=== PATIENT | female | born 2000 | race Caucasian/White ===

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

== ENCOUNTER 2023-02-23 19:51 | Emergency (ER) | payer OTHER, BC ==
[2023-02-23 20:36] VITALS: BP 130/77; PULSE 73
== END 2023-02-23 20:45 | disposition home or self-care (01) ==
LOC: KA.ED 19:51
DX: R51.9 Headache, unspecified (principal); M54.2 Cervicalgia; M54.50 Low back pain, unspecified; M79.652 Pain in left thigh; V43.52XA Car driver injured in collision with other type car in traffic accident, initial encounter; Y92.410 Unspecified street and highway as the place of occurrence of the external cause
CPT/HCPCS: 99283

== ENCOUNTER 2024-08-14 21:58 | Emergency (ER) | payer BC ==
[2024-08-14] MEDS: Ondansetron 4 MG/2 ML SDV IVPUSH ONE (22:28)
[2024-08-14] MEDS: Sodium Chloride 0.9% 1,000 ML IV ONE (22:30)
[2024-08-14] MEDS: Ondansetron 4 MG Tab.DIS PO ONE (23:42)
== END 2024-08-15 00:43 | disposition home or self-care (01) ==
LOC: KA.ED 21:58
DX: O21.9 Vomiting of pregnancy, unspecified (principal); Z79.899 Other long term (current) drug therapy; Z3A.15 15 weeks gestation of pregnancy
CPT/HCPCS: 96361; 96374; 99283-25; A9270-GY; J2405; J7030